=== PATIENT | female | born 1960 | race Caucasian/White ===

== ENCOUNTER → 2016-08-25 | Outpatient (CLI) | payer BC ==
--- NOTE | 2016-08-27 08:05 | MM ---
Reason for exam: screening (asymptomatic). Last mammogram was performed 1 year and 5 months ago. History: Benign US LT VAD breast biopsy of the left breast, January 03, 2013. Took hormonal contraceptives for 20 years beginning at age 21. Physical Findings: A clinical breast exam by your physician is recommended on an annual basis and results should be correlated with mammographic findings. MG 3D Screening Mammo W/Cad Bilateral CC and MLO view(s) were taken. Prior study comparison: April 03, 2015, bilateral MG 3d screening mammo w/cad. March 12, 2014, bilateral MG diagnostic mammo w CAD SITA. December 28, 2012, bilateral breast ultrasound. June 30, 2012, left diagnostic mammogram w/CAD. The breast tissue is heterogeneously dense. This may lower the sensitivity of mammography. Previous mammotome biopsy within the left breast. There is chronic nodularity in the left breast. New increasing calcifications far posterior lower inner quadrant of the right breast. ASSESSMENT: Incomplete: need additional imaging evaluation, BI-RAD 0 RECOMMENDATION: Special view mammogram of the right breast. If lesion persists on supplemental views, image directed ultrasound is recommended. [facility] will attempt to contact patient to return for supplemental views and ultrasound if indicated.
== END | disposition home or self-care (01) ==
LOC: RADMAMWWP 16:30
PROVIDERS: ATTEND Obstetrics & Gynecology
DX: Z12.31 Encounter for screening mammogram for malignant neoplasm of breast (principal)
CPT/HCPCS: 77063; G0202

== ENCOUNTER → 2016-09-01 | Outpatient (CLI) | payer BC ==
--- NOTE | 2016-09-01 13:31 | MM ---
Reason for exam: additional evaluation requested from abnormal screening. Last mammogram was performed less than 1 month ago. History: Benign US LT VAD breast biopsy of the left breast, January 03, 2013. Took hormonal contraceptives for 20 years beginning at age 21. Physical Findings: Nurse did not find any significant physical abnormalities on exam. MG 3D Work Up W/Cad RT ML, CC with magnification, and ML with magnification view(s) were taken of the right breast. Prior study comparison: August 25, 2016, bilateral MG 3d screening mammo w/cad. April 03, 2015, bilateral MG 3d screening mammo w/cad. Finding: There are grouped indeterminate calcifications in the lower inner quadrant, posterior position of the left breast, that do not go completely away but not well seen. These results were verbally communicated with the patient and result sheet given to the patient on 09/01/16. ASSESSMENT: Incomplete: need additional imaging evaluation, BI-RAD 0 RECOMMENDATION: Ultrasound of the right breast.
--- NOTE | 2016-09-01 13:35 | USB ---
Reason for exam: additional evaluation requested from abnormal screening. History: Benign US LT VAD breast biopsy of the left breast, January 03, 2013. Took hormonal contraceptives for 20 years beginning at age 21. US Breast Workup RT Right breast ultrasound includes all four quadrants, the retroareolar region and axilla. Finding demonstrate no cystic or solid lesion seen. These results were verbally communicated with the patient and result sheet given to the patient on 09/01/16. ASSESSMENT: Suspicious, BI-RAD 4 RECOMMENDATION: Stereotactic core biopsy of the right breast. (attempt) Called Dr. Plascencia with mammographic findings and has scheduled an appointment for the patient for 09/09/16 at 1:[address] Palencia. PRELIMINARY REPORT CALLED AND FAXED TO DR. PALENCIA ON 09/01/16 AT 300/TMP.
== END | disposition home or self-care (01) ==
LOC: RADMAMWWP 06:56
PROVIDERS: ATTEND Obstetrics & Gynecology
DX: R92.8 Other abnormal and inconclusive findings on diagnostic imaging of breast (principal)
CPT/HCPCS: 76641; G0206; G0279

== ENCOUNTER → 2016-09-13 | Day surgery (SDC) | payer BC ==
[2016-09-13 08:44] VITALS: BP 120/84; PULSE 80; RESP 16; TEMP 97.9; BMI 21.9
--- NOTE | 2016-09-13 11:59 | MM ---
Stereotactic core biopsy right breast. HISTORY: Microcalcifications. The calcifications in question within the right breast were targeted by the undersigned. The examination was performed by the surgeon. Specimen radiograph demonstrates numerous calcifications within the specimen submitted. Post procedural mammogram demonstrates appropriate deployment of radiopaque clip markers. The patient tolerated the procedure well and left the department in stable condition. Pathology results are pending. IMPRESSION: Successful stereotactic core biopsy right breast with pathology results pending. Pathology Results: Benign BREAST, RIGHT SITE A, CORE BIOPSY: FIBROCYSTIC CHANGES INCLUDING CYSTS, CALCIFICATIONS, FIBROSIS AND ADENOSIS. Recommendation Follow up mammogram of the right breast in 6 months. JESSA
--- NOTE | 2016-09-13 12:55 | PCN ---
DATE OF PROCEDURE: 09/13/2016 PREOPERATIVE DIAGNOSIS: Abnormal mammogram, right breast. POSTOPERATIVE DIAGNOSIS: Abnormal mammogram, right breast. PROCEDURE: Right stereotactic breast biopsy with marker placement. ANESTHESIA: Local. COMPLICATIONS: None. SPECIMEN: Breast tissue. REFERRING: Dr. Phil Keenan. GROSS FINDINGS AND PROCEDURE: Zeinab is a 56-year-old female, had a mammogram done showing a grouping of calcifications in the right breast for which biopsy was recommended. She is taken to the stereotactic suite where the area of concern was marked by the radiologist. The breast was then prepped. Local anesthetic was instilled. A skin stephanie was made and the needle is advanced. She has a little bit of a vagal reaction with some nausea, the needle was withdrawn. Cold cloths were placed on her neck and forehead and her symptoms resolved. The area was re-stereoed. The needle was replaced and fired. Multiple vacuum-assisted automated cores were obtained. Several of them showed microcalcifications. A tissue marker was then placed. A dressing was applied. She tolerated the procedure and I will see her in the office for pathology .
== END ==
LOC: RADMAMWWP 07:30
PROVIDERS: ATTEND Surgery
DX: N60.11 Diffuse cystic mastopathy of right breast (principal); R92.1 Mammographic calcification found on diagnostic imaging of breast; N60.21 Fibroadenosis of right breast; R92.0 Mammographic microcalcification found on diagnostic imaging of breast; R92.8 Other abnormal and inconclusive findings on diagnostic imaging of breast
CPT/HCPCS: 88305; 19081; A4648; J2001

== ENCOUNTER → 2017-12-29 | Outpatient (CLI) | payer BC ==
--- NOTE | 2017-12-29 10:50 | MM ---
Reason for exam: additional evaluation requested from prior study. Last mammogram was performed 1 year and 4 months ago. History: Benign MG stereo VAD BX RT of the right breast, September 13, 2016. Benign US LT VAD breast biopsy of the left breast, January 03, 2013. Took hormonal contraceptives for 20 years beginning at age 21. Physical Findings: Nurse Summary: 1cm nodule in the right breast at 12 o'clock (nurse cade). MG 3D Diag Mammo W/Cad SITA Bilateral CC and MLO view(s) were taken. Prior study comparison: September 01, 2016, right breast MG 3d work up w/cad RT. August 25, 2016, bilateral MG 3d screening mammo w/cad. The breast tissue is extremely dense which could obscure a lesion on mammography. There are benign appearing round calcifications bilaterally. Previous mammotome biopsy in the right and left breast. There is no discrete abnormality. These results were verbally communicated with the patient and result sheet given to the patient on 12/29/17. ASSESSMENT: Incomplete: need additional imaging evaluation, BI-RAD 0 RECOMMENDATION: Ultrasound of the right breast. (palpable by patient)
--- NOTE | 2017-12-29 10:52 | USB ---
Reason for exam: additional evaluation requested from abnormal screening. History: Benign MG stereo VAD BX RT of the right breast, September 13, 2016. Benign US LT VAD breast biopsy of the left breast, January 03, 2013. Took hormonal contraceptives for 20 years beginning at age 21. US Breast Limited RT Right limited breast ultrasound including focal area of concern, retroareolar and axilla demonstrates no cystic or solid lesion seen. These results were verbally communicated with the patient and result sheet given to the patient on 12/29/17. ASSESSMENT: Negative, BI-RAD 1 RECOMMENDATION: Routine screening mammogram of both breasts in 1 year. Manage on a clinical basis with regard to palpable abnormality by patient.
== END | disposition home or self-care (01) ==
LOC: RADMAMWWP 06:57
PROVIDERS: ATTEND Obstetrics & Gynecology
DX: R92.8 Other abnormal and inconclusive findings on diagnostic imaging of breast (principal)
CPT/HCPCS: 77062; 77066

== ENCOUNTER → 2018-05-08 | Outpatient (CLI) | payer BC ==
--- NOTE | 2018-05-09 07:35 | US ---
EXAMINATION TYPE: US abdomen complete DATE OF EXAM: 05/08/2018 COMPARISON: 09/12/2015 CLINICAL HISTORY: R10.13 Epigastric abdominal pain. EXAM MEASUREMENTS: Liver Length: 13.9 cm Gallbladder Wall: 0.1 cm CBD: 0.2 cm Spleen: 8.8 cm Right Kidney: 11.0 x 4.0 x 4.9 cm Left Kidney: 10.5 x 4.4 x 4.6 cm Pancreas: wnl Liver: wnl Gallbladder: wnl CBD: wnl Spleen: wnl Right Kidney: cyst noted measuring 0.9 x 0.8 x 0.8cm Left Kidney: No hydronephrosis or masses seen Upper IVC: wnl Abd Aorta: wnl The liver is homogenous. The intrahepatic portion of the IVC and proximal abdominal aorta are within normal limits. There is no evidence of cholelithiasis. Common bile duct is unremarkable. The visu alized portions of the pancreas are homogenous. The spleen is unremarkable. Kidneys are symmetric a nd free of hydronephrosis. IMPRESSION: 1. No sonographic evidence of cholelithiasis or acute cholecystitis. 2. Simple appearing 9 mm right renal cyst. Center
== END | disposition home or self-care (01) ==
LOC: RADUSWWP 15:20
DX: N28.1 Cyst of kidney, acquired (principal)
CPT/HCPCS: 76700

== ENCOUNTER 2018-05-11 08:38 | Day surgery (SDC) | payer BC ==
[2018-05-09 13:35] VITALS: BMI 21.2
[~2018-05-11 08:38] MED LIST: LACTATED RINGERS 1,000 ML IV SCH; LIDOCAINE 1% INJ 10MG/ML (20 ML MDV) ONE; PROPOFOL 10 MG/ML 20 ML VIAL IV ONE
[2018-05-11 09:25] VITALS: TEMP 98.3
[2018-05-11] MEDS ORDERED: ONDANSETRON 4 MG/2 ML VIAL IVP ONE (09:34)
[2018-05-11] MEDS ORDERED: ONDANSETRON 4 MG/2 ML VIAL ONE (10:14)
[2018-05-11] MEDS ORDERED: LIDOCAINE 1% INJ 10MG/ML (20 ML MDV) ONE (10:14)
[2018-05-11] MEDS ORDERED: PROPOFOL 10 MG/ML 20 ML VIAL IV ONE (10:14)
--- NOTE | 2018-05-11 10:44 | P.PCN ---
Date of Procedure: 05/11/18 Procedure(s) Performed: Procedure: Esophagogastroduodenoscopy and biopsy. Preoperative diagnosis: Epigastric pain and reflux symptoms. Postoperative diagnosis: 1. Small sliding hiatal hernia with no obvious esophagitis or complicated reflux disease. 2. Minimal antral gastritis. Preparation and sedation: Was provided by anesthesia. Brief clinical history: The patient is a 57-year-old female who was evaluated in the office last month because of acid reflux issues and August of last year. Her heartburn did not respond to acid suppressive therapy. The patient was tested for H. pylori and that was positive and she was treated for that. I scheduled an ultrasound of the abdomen which was normal and I scheduled this evaluation to assess for complicated reflux disease or other pathology. Procedure: With the patient on her left lateral decubitus position and after informed consent and adequate sedation, I passed a Olympus-GIF H1 90 video upper endoscope through the cricopharyngeus down the esophagus. There was a small sliding hiatal hernia but no obvious esophagitis or complicated reflux disease. GE junction was around 40 cm from the incisors. The endoscope was then passed into the stomach which was insufflated with air and inspected in detail including the retroflex view in the cardia. There was some mottling and erythema in the antrum but no ulcers or erosions. Pyloric channel, duodenal bulb, post bulbar area and descending duodenum appeared within normal limits. I obtained biopsies from the duodenum, antrum and esophagus then the endoscope was withdrawn. The patient tolerated the procedure well. Plan: The patient was reassured. Will await biopsy results and make further plans based on her course and biopsy results. I will keep you updated on her progress.
[2018-05-11 10:58] VITALS: BP 118/72; PULSE 72; RESP 18
== END 2018-05-11 11:15 | disposition home or self-care (01) ==
LOC: ORWHC2ENDO 08:38
DX: K29.50 Unspecified chronic gastritis without bleeding (principal); K44.9 Diaphragmatic hernia without obstruction or gangrene; K21.9 Gastro-esophageal reflux disease without esophagitis; Z86.19 Personal history of other infectious and parasitic diseases; Z88.1 Allergy status to other antibiotic agents
CPT/HCPCS: 88305; 43239; J2405; J2001; J2704

== ENCOUNTER 2019-04-13 13:10 | Emergency (ER) | payer BC ==
[2019-04-13 13:55] LABS: Glucose,Whole Blood 159 mg/dL (75-99)
[2019-04-13] MEDS ORDERED: SODIUM CHLORIDE 0.9% 1,000 ML IV STA (14:14)
[2019-04-13] MEDS ORDERED: DIPH,PERTUS(ACELL)TETVAC-LF 0.5 ML VIAL IM ONE (14:16)
[2019-04-13 14:52] LABS: Basophils % (A) 0 %; Eosinophils # (A) 0.1 k/uL (0-0.7); Eosinophils % (A) 1 %; HCT 42.5 % (34.0-46.0); HGB 14.6 gm/dL (11.4-16.0); Lymphocytes # (A) 0.4 k/uL (1.0-4.8); Lymphocytes % (A) 7 %; MCH 31.3 pg (25.0-35.0); MCHC 34.3 g/dL (31.0-37.0); MCV 91.2 fL (80.0-100.0); Monocytes # (A) 0.1 k/uL (0-1.0); Monocytes % (A) 1 %; Neutrophils # (A) 5.2 k/uL (1.3-7.7); Neutrophils % (A) 89 %; Platelet Count 151 k/uL (150-450); RBC 4.67 m/uL (3.80-5.40); RDW 11.8 % (11.5-15.5); WBC 5.8 k/uL (3.8-10.6)
[2019-04-13 15:08] LABS: ALT 23 U/L (4-34); AST 30 U/L (14-36); African American GFR (CKD) >90 (>60 ml/min/1.73 sqM); Albumin 4.6 g/dL (3.5-5.0); Alkaline Phosphatase 85 U/L (38-126); Anion Gap 11 mmol/L; Blood Urea Nitrogen 15 mg/dL (7-17); Calcium 9.7 mg/dL (8.4-10.2); Carbon Dioxide 24 mmol/L (22-30); Chloride 106 mmol/L (98-107); Glucose 160 mg/dL (74-99); Magnesium 2.1 mg/dL (1.6-2.3); Non-African American GFR(CKD) >90 (>60 ml/min/1.73 sqM); Potassium 4.4 mmol/L (3.5-5.1); Sodium 141 mmol/L (137-145); Total Bilirubin 0.7 mg/dL (0.2-1.3); Total Protein 7.8 g/dL (6.3-8.2)
[2019-04-13 15:09] LABS: INR 0.9 (<1.2); Partial Thromboplastin Time 21.2 sec (22.0-30.0); Prothrombin Time 9.9 sec (9.0-12.0)
--- NOTE | 2019-04-13 16:03 | CT ---
EXAMINATION TYPE: CT brain [place] wo con DATE OF EXAM: 04/13/2019 COMPARISON: None HISTORY: Syncopal episode with facial injury CT DLP: 990.6 mGycm, Automated exposure control for dose reduction was used. CONTRAST: Patient injected with 0 mL of Isovue 300. CT of the brain is performed utilizing 3 mm thick sections through the posterior fossa and 3 mm thick sections through the remaining calvarium. Study is performed within 24 hours of arrival to the hospital. No abnormal hyperdensity is present to suggest an acute intracranial hemorrhage. No mass lesion is evident. No acute infarcts are evident. Ventricles and sulci are appropriate for the patient age. Mastoid air cells are clear. Tiny air-fluid levels within the right sphenoid sinus. There is mucosal thickening and opacification through mid and posterior right ethmoid air cells. Some air-fluid level may be within the right frontal sinus. Left ethmoid air cells and frontal sinuses are clear. There is superficial soft tissue subcutaneous emphysema over the right orbit. Tiny air-fluid levels within th e right maxillary sinus. IMPRESSIONS: 1. No acute intracranial process. 2. Subcutaneous air over the left periorbital region. No underlying fracture is evident. CT cervical spine. COMPARISON: None CT of the cervical spine is performed in the axial plane at 2 mm thick sections. Reconstructed image s in the coronal, and sagittal plane are reviewed on the computer. No acute fractures are evident. Vertebral body alignment is normal. Degenerative disc changes are present greatest at C4-5 C5-6 and C6-7. Some posterior endplate spurrin g is present C3-5-6 C6-7. Small anterior vertebral body spurs are present C4-C7. Posterior spinal carpio ellar line is intact. Vertebral body heights are preserved. No spinal canal stenosis is evident. Uncovertebral joint hypertrophy is contributing to some mild foraminal narrowing C5-6 C6-7 IMPRESSIONS: 1. No acute fractures. 2. Degenerative disc changes within the mid cervical spine
--- NOTE | 2019-04-13 16:06 | CT ---
EXAMINATION TYPE: CT facial bones wo con DATE OF EXAM: 04/13/2019 COMPARISON: 10/11/2013 HISTORY: Syncopal episode with facial injury CT DLP: 990.6 mGycm Automated exposure control for dose reduction was used. TECHNIQUE: Axial images 2 mm thick sections. Reconstructed images in the coronal plane. FINDINGS: Maxillary spine is intact. There may be a nasal bone fracture on the right, change from prior study. Nasal bones otherwise appear intact. Subcutaneous air is over the left frontal region. No radiopaque foreign bodies are evident. In the coronal plane a left NaSal bridge fracture may be present. The orbits appear intact. Orbital floors are normal. Zygomatic arches are normal. Greater wings of th e sphenoid are normal. Mucosal thickening within multiple paranasal sinuses as discussed on CT brain exam same date. IMPRESSION: 1. SUSPECTED NASAL BONE FRACTURES RIGHT LATERAL INFERIOR AND SUPERIOR MEDIAL LEFT NASAL BONES. 2. NO ADDITIONAL FRACTURES EVIDENT. 3. SUBCUTANEOUS AIR LEFT FRONTAL REGION.
--- NOTE | 2019-04-13 16:19 | ED ---
General Adult HPI - General Chief complaint: Syncope Stated complaint: Syncope, head injury Time Seen by Provider: 04/13/19 13:58 Source: patient Mode of arrival: ambulatory Limitations: no limitations - History of Present Illness Initial comments: 58-year-old female patient presents to the emergency department today for evaluation after having a syncopal episode. Patient states last evening she was having a bowel movement when she woke up on the floor. Patient did have facial trauma. She is reporting left-sided facial pain. Denies any blurred or double vision. Denies headache, nausea, vomiting, dizziness, weakness. States she does have some neck stiffness with this. She is unsure when her last tetanus vaccine was given. Denies taking any medication for pain her symptoms. Patient denies any history of syncope or seizures. Patient has been sick with upper respiratory infection for the last week. Has been evauated by her physician and is currently taking steroids and antibiotics. Patient denies any recent rash, chest pain, abdominal pain, diarrhea, constipation, back pain, numbness, tingling, dizziness, weakness, hematuria, dysuria, urinary urgency, urinary frequency, or any other complaints. - Related Data Home Medications Medication Instructions Recorded Confirmed Dgl Licorice Supplement 1 dose PO DIRECTED PRN 05/09/18 05/11/18 [place] Gum Supplement 1 dose PO DIRECTED PRN 05/09/18 05/11/18 Allergies Allergy/AdvReac Type Severity Reaction Status Date / Time LARGE DOSE ANTIBIOTICS AdvReac Unknown Nausea & Uncoded 05/11/18 09:25 Vomiting Review of Systems ROS Statement: Those systems with pertinent positive or pertinent negative responses have been documented in the HPI. ROS Other: All systems not noted in ROS Statement are negative. Past Medical History Past Medical History: GERD/Reflux Additional Past Medical History / Comment(s): GERD in past not currently an issue as of August 2016 History of Any Multi-Drug Resistant Organisms: None Reported Past Surgical History: No Surgical Hx Reported Additional Past Surgical History / Comment(s): colonoscopy August 2015 Past Anesthesia/Blood Transfusion Reactions: Postoperative Nausea & Vomiting (PONV) Past Psychological History: Anxiety, Depression Smoking Status: Never smoker Past Alcohol Use History: Daily Past Drug Use History: None Reported General Exam Limitations: no limitations General appearance: alert, in no apparent distress, other (Physical well- developed, well-nourished adult female patient in no acute distress. Vital signs upon presentation are temperature 97.5F, pulse 95, respirations 18, blood pressure 126/84, pulse ox 97% on room air.) Eye exam: Present: normal appearance, PERRL, EOMI, periorbital swelling (Left), periorbital tenderness (Left superior orbital tenderness), other (0.5 cm laceration noted to the left eyebrow.). Absent: scleral icterus, conjunctival injection ENT exam: Present: normal oropharynx, mucous membranes moist, other (Nasal bone tenderness) Neck exam: Present: normal inspection, full ROM, other (Nontender, no step-off, no deformity to firm midline palpation of the posterior cervical spine. Full range of motion without pain or limitation.). Absent: tenderness, meningismus, lymphadenopathy Respiratory exam: Present: normal lung sounds bilaterally. Absent: respiratory distress, wheezes, rales, rhonchi, stridor Cardiovascular Exam: Present: regular rate, normal rhythm, normal heart sounds. Absent: systolic murmur, diastolic murmur, rubs, gallop, clicks GI/Abdominal exam: Present: soft, normal bowel sounds. Absent: distended, tenderness, guarding, rebound, rigid Neurological exam: Present: alert, oriented X3, CN II-XII intact Psychiatric exam: Present: normal affect, normal mood Skin exam: Present: warm, dry, intact, normal color. Absent: rash Course Vital Signs 04/13/19 04/13/19 04/13/19 13:18 13:20 16:51 Temperature 97.5 F L 98.7 F Pulse Rate 95 92 Respiratory 18 20 18 Rate Blood Pressure 126/84 127/78 O2 Sat by Pulse 97 98 Oximetry 04/13/19 16:54 Temperature 98.2 F Pulse Rate 91 Respiratory 16 Rate Blood Pressure 130/78 O2 Sat by Pulse 98 Oximetry EKG Findings - EKG Comments: EKG Findings:: EKG obtained at 1351 shows normal sinus rhythm with a ventricular rate of 86, VA interval 146, QRS duration 74, QT 348, QTC 416. No evidence of ST elevation or depression. Medical Decision Making - Medical Decision Making 58 year-old female patient presents to the emergency department today for evaluation after experiencing syncope last evening. Patient sustained facial trauma. Physical examination did reveal left periorbital ecchymosis and tenderness over the superior orbit. Globe injury was not present. CT of the brain, facial bones, neck was obtained there is possible nasal bone fracture. Labs reviewed and are unremarkable. EKG showed normal sinus rhythm. I did discuss findings and results with the patient. We discharged follow up with the ENT specialist for further evaluation. Return parameters were discussed in detail. She verbalizes understanding and agrees with this plan - Lab Data Result diagrams: 04/13/19 14:41 04/13/19 14:41 Lab Results 04/13/19 04/13/19 04/13/19 Range/Units 13:54 14:41 14:41 WBC 5.8 (3.8-10.6) k/uL RBC 4.67 (3.80-5.40) m/uL Hgb 14.6 (11.4-16.0) gm/dL Hct 42.5 (34.0-46.0) % MCV 91.2 (80.0-100.0) fL MCH 31.3 (25.0-35.0) pg MCHC 34.3 (31.0-37.0) g/dL RDW 11.8 (11.5-15.5) % Plt Count 151 (150-450) k/uL Neutrophils % 89 % Lymphocytes % 7 % Monocytes % 1 % Eosinophils % 1 % Basophils % 0 % Neutrophils # 5.2 (1.3-7.7) k/uL Lymphocytes # 0.4 L (1.0-4.8) k/uL Monocytes # 0.1 (0-1.0) k/uL Eosinophils # 0.1 (0-0.7) k/uL Basophils # 0.0 (0-0.2) k/uL PT (9.0-12.0) sec INR (<1.2) APTT (22.0-30.0) sec Sodium 141 (137-145) mmol/L Potassium 4.4 (3.5-5.1) mmol/L Chloride 106 (98-107) mmol/L Carbon Dioxide 24 (22-30) mmol/L Anion Gap 11 mmol/L BUN 15 (7-17) mg/dL Creatinine 0.64 (0.52-1.04) mg/dL Est GFR (CKD-EPI)AfAm >90 (>60 ml/min/1.73 sqM) Est GFR (CKD-EPI)NonAf >90 (>60 ml/min/1.73 sqM) Glucose 160 H (74-99) mg/dL POC Glucose (mg/dL) 159 H (75-99) mg/dL POC Glu [employer] Trainer ID Rhianna Smith Calcium 9.7 (8.4-10.2) mg/dL Magnesium 2.1 (1.6-2.3) mg/dL Total Bilirubin 0.7 (0.2-1.3) mg/dL AST 30 (14-36) U/L ALT 23 (4-34) U/L Alkaline Phosphatase 85 (38-126) U/L Troponin I (0.000-0.034) ng/mL Total Protein 7.8 (6.3-8.2) g/dL Albumin 4.6 (3.5-5.0) g/dL 04/13/19 04/13/19 Range/Units 14:41 14:41 WBC (3.8-10.6) k/uL RBC (3.80-5.40) m/uL Hgb (11.4-16.0) gm/dL Hct (34.0-46.0) % MCV (80.0-100.0) fL MCH (25.0-35.0) pg MCHC (31.0-37.0) g/dL RDW (11.5-15.5) % Plt Count (150-450) k/uL Neutrophils % % Lymphocytes % % Monocytes % % Eosinophils % % Basophils % % Neutrophils # (1.3-7.7) k/uL Lymphocytes # (1.0-4.8) k/uL Monocytes # (0-1.0) k/uL Eosinophils # (0-0.7) k/uL Basophils # (0-0.2) k/uL PT 9.9 (9.0-12.0) sec INR 0.9 (<1.2) APTT 21.2 L (22.0-30.0) sec Sodium (137-145) mmol/L Potassium (3.5-5.1) mmol/L Chloride (98-107) mmol/L Carbon Dioxide (22-30) mmol/L Anion Gap mmol/L BUN (7-17) mg/dL Creatinine (0.52-1.04) mg/dL Est GFR (CKD-EPI)AfAm (>60 ml/min/1.73 sqM) Est GFR (CKD-EPI)NonAf (>60 ml/min/1.73 sqM) Glucose (74-99) mg/dL POC Glucose (mg/dL) (75-99) mg/dL POC Glu [employer] Trainer ID Calcium (8.4-10.2) mg/dL Magnesium (1.6-2.3) mg/dL Total Bilirubin (0.2-1.3) mg/dL AST (14-36) U/L ALT (4-34) U/L Alkaline Phosphatase (38-126) U/L Troponin I <0.012 (0.000-0.034) ng/mL Total Protein (6.3-8.2) g/dL Albumin (3.5-5.0) g/dL - Radiology Data Radiology results: report reviewed, image reviewed CT facial bones without contrast was obtained. Report was reviewed in its entirety. Impression by Dr. Carolina shows suspected nasal bone fractures right lateral, anterior, and superior medial left nasal bones. No additional fractures evident. Some cutaneous a left frontal region. CT brain and C-spine without contrast was obtained. Report was reviewed in its entirety. Impression by Dr. Carolina shows no acute intracranial process, subcutaneous air of the left periorbital region. No underlying fracture. Degenerative disc changes within the right cervical spine. Disposition Clinical Impression: Head injury, Nasal bone fracture, Syncope Disposition: HOME SELF-CARE Condition: Good Instructions (If sedation given, give patient instructions): Nasal Fracture (ED), Syncope (ED), Head Injury (ED) Additional Instructions: Increase fluids. Rest. Follow up with your primary care physician for recheck in 1-2 days. Follow up with the ENT specialist as needed. Return to the emergency department for any new, worsening, or concerning symptoms. Is patient prescribed a controlled substance at d/c from ED?: No Referrals: Carine Keenan III, MD [Primary Care Provider] - 1-2 days Priyank Little MD [STAFF PHYSICIAN] - 1-2 days Time of Disposition: 16:19
[2019-04-13 16:56] VITALS: BP 130/78; PULSE 91; RESP 16; TEMP 98.2
== END 2019-04-13 16:54 | disposition home or self-care (01) ==
LOC: EC 13:10
DX: S02.2XXA Fracture of nasal bones, initial encounter for closed fracture (principal); R55 Syncope and collapse; S01.112A Laceration without foreign body of left eyelid and periocular area, initial encounter; J06.9 Acute upper respiratory infection, unspecified; Z88.1 Allergy status to other antibiotic agents; Z79.52 Long term (current) use of systemic steroids; Z23 Encounter for immunization; W22.8XXA Striking against or struck by other objects, initial encounter; Y93.89 Activity, other specified; Y92.009 Unspecified place in unspecified non-institutional (private) residence as the place of occurrence of the external cause
CPT/HCPCS: 36415; 70450; 70486; 72125; 80053; 83735; 84484; 85025; 85610; 85730; 90471; 90715; 93005; 96360; 99284

== ENCOUNTER → 2019-04-30 | Outpatient (CLI) | payer BC ==
--- NOTE | 2019-05-01 10:44 | MM ---
Reason for exam: screening (asymptomatic). Last mammogram was performed 1 year and 4 months ago. History: Patient is postmenopausal. Benign MG stereo VAD BX RT of the right breast, September 13, 2016. Benign US LT VAD breast biopsy of the left breast, January 03, 2013. Took hormonal contraceptives for 20 years beginning at age 21. Physical Findings: A clinical breast exam by your physician is recommended on an annual basis and results should be correlated with mammographic findings. MG 3D Screening Mammo W/Cad Bilateral CC and MLO view(s) were taken. Prior study comparison: December 29, 2017, bilateral MG 3d diag mammo w/cad SITA. September 01, 2016, right breast MG 3d work up w/cad RT. The breast tissue is heterogeneously dense. This may lower the sensitivity of mammography. Stable benign calcifications. There is chronic nodularity bilaterally. There is no dominant lesion. No significant changes when compared with prior studies. ASSESSMENT: Benign, BI-RAD 2 RECOMMENDATION: Routine screening mammogram of both breasts in 1 year.
== END | disposition home or self-care (01) ==
LOC: RADMAMWWP 16:17
PROVIDERS: ATTEND Obstetrics & Gynecology
DX: Z12.31 Encounter for screening mammogram for malignant neoplasm of breast (principal)
CPT/HCPCS: 77063; 77067

== ENCOUNTER → 2020-09-09 | Outpatient (CLI) | payer BC ==
--- NOTE | 2020-09-09 13:46 | MM ---
Reason for exam: screening (asymptomatic). Last mammogram was performed 1 year and 4 months ago. History: Patient is postmenopausal. Benign MG stereo VAD BX RT of the right breast, September 13, 2016. Benign US LT VAD breast biopsy of the left breast, January 03, 2013. Took hormonal contraceptives for 20 years beginning at age 21. Physical Findings: A clinical breast exam by your physician is recommended on an annual basis and results should be correlated with mammographic findings. MG 3D Screening Mammo W/Cad Bilateral CC and MLO view(s) were taken. Prior study comparison: April 30, 2019, bilateral MG 3d screening mammo w/cad. December 29, 2017, bilateral MG 3d diag mammo w/cad [facility]. The breast tissue is heterogeneously dense. This may lower the sensitivity of mammography. There is unchanged architectural distortion with adjacent biopsy clip left upper outer breast. No change. ASSESSMENT: Benign, BI-RAD 2 RECOMMENDATION: Routine screening mammogram of both breasts in 1 year.
== END | disposition home or self-care (01) ==
LOC: RADMAMWWP 10:29
PROVIDERS: ATTEND Obstetrics & Gynecology
DX: Z12.31 Encounter for screening mammogram for malignant neoplasm of breast (principal)
CPT/HCPCS: 77063; 77067